=== PATIENT | male | born 1940 | race Hispanic/Latino ===

== ENCOUNTER 2016-09-24 21:25 | Emergency (ER) | payer MEDICARE ==
[2016-09-24 21:25] VITALS: BMI 21.1
[2016-09-24 21:30] VITALS: BP 147/66; PULSE 70; RESP 16; TEMP 97.6; O2SAT 96
--- NOTE | 2016-09-24 22:19 | ED PDOC ---
HPI: Male Pain Time Seen by Provider: 09/24/16 21:28 Chief Complaint (Nursing): Male Genitourinary Chief Complaint (Provider): Urinary Retention History Per: Patient History/Exam Limitations: no limitations Onset/Duration Of Symptoms: Days (5 days ago) Current Symptoms Are (Timing): Still Present Severity: Severe Quality Of Discomfort: Burning Associated Symptoms: Urinary Symptoms (dysuria). denies: Back Pain, Other ( abdominal pain/fullness) Alleviating Factors: None Additional Complaint(s): Carlin Carroll is a 76 year old male, with a past medical history of prostate cancer, hypertension, and end stage renal disease, who presents to the emergency department for the evaluation of urinary retention, that the patient has been experiencing for the past 5 days. Pain is described as a severe burning sensation. Patient went to go see his urologist 3 days ago, in which he was prescribed antibiotics and Phenazopyridine; however, his symptoms continue to worsen and he reports that he can now only urinate a couple of drops at the very most to when he feels the need to excrete fluids, prompting his visit to the ED. Associated dysuria is currently present. Denies abdominal pain, abdominal fullness, or back pain. Of note, patient is on dialysis and was last treated for his end stage renal disease today. PMD: Dr. Mata Past Medical History Reviewed: Historical Data, Nursing Documentation, Vital Signs Vital Signs: Last Vital Signs Temp 97.6 F 09/24/16 21:29 Pulse 70 09/24/16 21:29 Resp 16 09/24/16 21:29 BP 147/66 09/24/16 21:29 Pulse Ox 96 09/24/16 21:29 - Medical History PMH: Anemia, Anxiety, Asthma, COPD, HTN, Hypothyroidism, End Stage Renal Disease , Chronic Kidney Disease Denies: Diabetes Other PMH: Prostate Cancer - Surgical History Surgical History: Cholecystectomy Other surgeries: Prostate Surgery - Family History Family History: States: No Known Family Hx - Social History Current smoker - smoking cessation education provided: No Ex-Smoker (has not smoked in the last 12 months): Yes Alcohol: None Drugs: Denies - Immunization History Hx Tetanus Toxoid Vaccination: No Hx Influenza Vaccination: Yes Hx Pneumococcal Vaccination: Yes - Home Medications Home Medications: Ambulatory Orders Medication Instructions Recorded Allopurinol [Zyloprim] 100 mg PO DAILY 07/26/15 Ezetimibe [Zetia] 10 mg PO DAILY 07/26/15 Levothyroxine [Levoxyl] 0.025 mg PO DAILY 07/26/15 Nebivolol HCl [Bystolic] 10 mg PO DAILY 07/26/15 amLODIPine [Norvasc] 10 mg PO DAILY 07/26/15 Budesonide/Formoterol Fumarate 2 puff IH BID 05/31/16 [Symbicort] Ciprofloxacin HCl [Cipro] 250 mg PO BID 05/31/16 Famotidine [Pepcid] 20 mg PO DAILY 05/31/16 Folic Acid 1 mg PO DAILY 05/31/16 Phenazopyridine [Pyridium] 100 mg PO BID 05/31/16 Tiotropium [place] Inhaler 1 inhaler INH DAILY 05/31/16 [Spiriva Inhalation Handihaler Device] hydrALAZINE [hydralazine 75 mg PO TID 05/31/16 Hydrochloride] Ciprofloxacin [Cipro] 1 tab PO BID #14 tab 09/24/16 traMADol [Ultram] 50 mg PO TID PRN #20 tab 09/24/16 - Allergies Allergies/Adverse Reactions: Allergies Allergy/AdvReac Type Severity Reaction Status Date / Time No Known Allergies Allergy Verified 07/26/15 11:20 Review of Systems ROS Statement: Except As Marked, All Systems Reviewed And Found Negative Gastrointestinal: Negative for: Abdominal Pain, Other (abdominal fullness) Genitourinary Male: Positive for: Dysuria ("burning"), Other (urinary retention) Musculoskeletal: Negative for: Back Pain Physical Exam - Reviewed Nursing Documentation Reviewed: Yes Vital Signs Reviewed: Yes - Physical Exam Appears: Positive for: In Acute Distress (mild painful distress). Negative for : Well (appears older than given age) Head Exam: Positive for: ATRAUMATIC, NORMOCEPHALIC Skin: Positive for: Normal Color, Warm, Dry Cardiovascular/Chest: Positive for: Regular Rate, Rhythm. Negative for: Murmur Respiratory: Positive for: Normal Breath Sounds. Negative for: Respiratory Distress Gastrointestinal/Abdominal: Positive for: Normal Exam, Soft, Tenderness (mild suprapubic tenderness to palpations). Negative for: Mass, Distended, Guarding, Rebound Male Genital Exam: Positive for: normal genitalia, other (uncircumcised). Negative for: lesions Back: Positive for: Normal Inspection. Negative for: L CVA Tenderness, R CVA Tenderness Neurologic/Psych: Positive for: Alert, Oriented - Laboratory Results Urine dip results: Positive for: Leukocyte Esterase, Blood, Nitrate - ECG O2 Sat by Pulse Oximetry: 96 (RA) Pulse Ox Interpretation: Normal Medical Decision Making Medical Decision Makin:28 Initial Impression: UTI and urinary retention Initial Plan: * Urine Dip * Urinalysis * Urinary Catheter Insertion * Urine Culture * Keflex 500 mg PO * Morphine 4 mg IM * Reevaluation 21:45 Bedside ultrasound performed by provider, patient demonstrates urine in bladder despite just voiding. Discussed case with Dr. Cardoso, urologist, and recommend casas, change antibiotic and that he will follow up with the patient on Monday. [id number] casas by nurses and myself unsuccessful. DW Dr Cardoso. Pt is not severe distended and able to void, just not completely. Pt to be sent home with pain meds, new antibiotics and f/u on Monday. Scribe Attestation: Documented by Polo Han, acting as a scribe for Dejah Green MD. Provider Scribe Attestation: All medical record entries made by the Scribe were at my direction and personally dictated by me. I have reviewed the chart and agree that the record accurately reflects my personal performance of the history, physical exam, medical decision making, and the department course for this patient. I have also personally directed, reviewed, and agree with the discharge instructions and disposition. Disposition - Clinical Impression Clinical Impression: Urinary tract infection, Urinary retention Counseled Patient/Family Regarding: Studies Performed, Diagnosis, Need For Followup, Rx Given - Disposition Referrals: Gino Cardoso MD [Medical Doctor] - 09/26/16 Disposition: Routine/Home Disposition Time: 23:00 Condition: STABLE Prescriptions: Ciprofloxacin [Cipro] 1 tab PO BID #14 tab traMADol [Ultram] 50 mg PO TID PRN #20 tab PRN Reason: SEVERE PAIN ONLY Instructions: Urinary Tract Infection in Men (ED)
== END 2016-09-24 23:43 | disposition home or self-care (01) ==
LOC: H.ER 21:25
DX: R33.9 Retention of urine, unspecified (principal); N39.0 Urinary tract infection, site not specified; I12.0 Hypertensive chronic kidney disease with stage 5 chronic kidney disease or end stage renal disease; N18.6 End stage renal disease
CPT/HCPCS: 87086; 96372; 99283; J2270